=== PATIENT | male | born 1980 | race Caucasian/White ===

== ENCOUNTER 2019-05-22 03:30 | Emergency (ER) | payer MEDICAID ==
[~2019-05-22] VITALS: Ht 185.4 cm; Wt 75.0 kg
[~2019-05-22 03:30] MED LIST: INSU100C4 SQ; PHENY100 PO
[2019-05-22] MEDS ORDERED: SUCR1ORA15 PO (04:17)
[2019-05-22] MEDS ORDERED: QUET300T2 PO (04:17)
[2019-05-22] MEDS ORDERED: LANS30 PO (04:17)
[2019-05-22] MEDS ORDERED: DIVA-76 PO (04:17)
[2019-05-22] MEDS ORDERED: MIRT-92 PO (04:17)
[2019-05-22] MEDS ORDERED: ADDE10 PO (04:17)
[2019-05-22 05:06] VITALS: BP 126/85
[2019-05-22] MEDS ORDERED: DOXYCYCLINE HYCLATE 100 MG CAPSULE PO ONE (05:30)
[2019-05-22] MEDS ORDERED: IBUPROFEN 600 MG TABLET PO ONE (05:30)
[2019-05-22] MEDS ORDERED: ACETAMINOPHEN 500 MG TABLET PO ONE (05:30)
== END 2019-05-22 05:35 | disposition home or self-care (01) ==
LOC: EMS 03:30
DX: L03.113 Cellulitis of right upper limb (principal); E11.9 Type 2 diabetes mellitus without complications; F17.210 Nicotine dependence, cigarettes, uncomplicated; Z88.8 Allergy status to other drugs, medicaments and biological substances
CPT/HCPCS: 99406